=== PATIENT | female | born 1965 | race Caucasian/White ===

== ENCOUNTER → 2016-11-09 | Day surgery (SDC) | payer BC ==
[~2016-11-09] MED LIST: CARAFATE PO; CARAFATE1 GM PO; CIPRO PO; DULOXETINE HCL20 MG PO; HYDROCODON-ACE1 EAC9 PO; HYDROMORPHONE HC2 MG PO; KLONOPIN1 M1; KLONOPIN2 MG PO; PANTOPRAZOLE SO40 MG PO; PHENERGAN25 M1 PO; PROMETHAZINE HC25 MG PO; QUETIAPINE FUMA25 MG PO; RESTORIL7.5 MG PO; VENLAFAXINE HCL75 M2 PO; ZANTAC150 MG PO
--- NOTE | ~2016-11-09 | HP ---
Unit #: [id number] #: [id number] Patient: HALIE SANTANA [id number] [address] [place], [place] [address] [id number] O MR#: [id number] NAME: HALIE SANTANA ROOM: Age: 51 Sex: F Admission Date: 11/09/2016 : 1965 Attending Physician: Kyaw Todd M.D. Referring Physician: Kyaw Todd M.D. Primary Care Physician: Miah Uriarte M.D. HISTORY AND PHYSICAL PREOPERATIVE HISTORY AND PHYSICAL PRIMARY CARE PHYSICIAN Dr. Uriarte HISTORY OF PRESENT ILLNESS Ms. Santana is a 51-year-old female, who presented to the hospital last February with syncope and melena and was found to have 2 large gastric ulcers. Biopsies at that time were benign and she was started on appropriate treatment. She is in for followup to re-evaluate her hernia. She still had some epigastric discomfort and nausea. Denies any melena or hematemesis. PAST MEDICAL HISTORY Interstitial cystitis, history of placement of bladder pacemaker. She has had a strangulated hernia repair, peptic ulcer disease, hysterectomy, tonsillectomy, nasal septal repair, oral surgery, breast biopsy, uterine ablation, D and C, small-bowel obstruction. ALLERGIES She is allergic to hydrocodone. CURRENT MEDICATIONS Include Klonopin, Restoril, Zantac, and Carafate. FAMILY HISTORY Unremarkable except for atherosclerotic coronary artery disease. SOCIAL HISTORY Nonsmoker. Nondrinker. Works outside the home. Denies use recreational drugs. PHYSICAL EXAMINATION VITAL SIGNS: Temperature is 98.1, pulse 71 and regular, respirations 12, blood pressure 100/67. GENERAL: She is awake, alert, and oriented. HEENT: Unremarkable. CARDIAC: Regular rhythm. LUNGS: Clear. ABDOMEN: Soft. EXTREMITIES: No edema. NEUROLOGIC: Grossly intact. No skin rashes or lesions. Unit #: [id number] #: [id number] Patient: HALIE SANTANA ASSESSMENT AND PLAN A 51-year-old female with history of peptic ulcer disease that was symptomatic. She still having some epigastric discomfort. We plan on repeating her endoscopic evaluation to assess the healing of the ulcers. We discussed the procedure including risks, benefits, and complications, and she agrees to proceed. Dictated by Ramos Ruiz/jayro TD: 11/10/2016 02:07 JOB #: [id number] HISTORY AND PHYSICAL Page 1 of 1 X Kyaw Todd MD X HISTORY AND PHYSICAL
--- NOTE | ~2016-11-09 | OR ---
Unit #: [id number] #: [id number] Patient: HALIE SANTANA [id number] [facility] [address] [facility]. [place], [place] [address] [id number] O MR#: [id number] NAME: HALIE SANTANA ROOM: Date of Procedure: 11/09/2016 Admission Date: 11/09/2016 Surgeon: Kyaw Todd M.D. : 1965 Attending Physician: Kyaw Todd M.D. Referring Physician: Kyaw Todd M.D. Primary Care Physician: Miah Uriarte M.D. OPERATIVE REPORT PREOPERATIVE DIAGNOSIS History of peptic ulcer disease. POSTOPERATIVE DIAGNOSIS Prepyloric gastric ulcer. PROCEDURES PERFORMED Esophagogastroduodenoscopy to third portion of duodenum with biopsy of the ulcer edge x2 and RILEY testing. ANESTHESIA Monitored anesthesia. INDICATIONS FOR PROCEDURE A 51-year-old female, who has had symptomatic ulcer disease in the past and was scheduled for followup. She still complained of some epigastric discomfort, but no hematemesis or melena. DESCRIPTION OF PROCEDURE The patient was admitted to [facility], positively identified, transported to the endoscopy suite. After appropriate monitoring and positioning, a bite block was placed and she was sedated by the nurse used car make ready mechanic. The endoscope was passed through the oral cavity in the esophagus. Under direct vision, we passed through the esophagus into the stomach. The stomach was insufflated and just before the pylorus, the patient still has a cratered ulcer bed, but no visible vessel and no evidence of any bleeding. I was able to pass through the pylorus down to the third portion of the duodenum. Duodenum and duodenal bulb were normal. As I came back in a retrograde fashion, biopsy from the ulcer edge were done x2 and then a biopsy for RILEY testing was taken. One of the biopsy sites had some bleeding, so it was hemoclipped. The upper fundus and cardia showed no abnormalities. As I came back to the GE junction, it was well demarcated at 40 cm. There was no hiatal hernia, no esophagitis, no Shearer mucosa. The rest of the esophagus appeared normal and the larynx appeared normal. The patient tolerated the procedure well and transported to recovery in stable condition. We will await the biopsy and CLOtest results, but in the interim, continue the patient's acid blockade and Carafate. Dictated by... Kyaw Todd M.D. Unit #: [id number] #: [id number] Patient: HALIE SANTANA GILBERT/jayro TD: 11/10/2016 02:21 JOB #: [id number] OPERATIVE REPORT Page 1 of 1 X Kyaw Todd MD X PROCEDURE OPERATIVE NOTE
== END | disposition home or self-care (01) ==
LOC: COPS 10:22
DX: K29.50 Unspecified chronic gastritis without bleeding (principal); K25.9 Gastric ulcer, unspecified as acute or chronic, without hemorrhage or perforation; Z87.11 Personal history of peptic ulcer disease; Z90.710 Acquired absence of both cervix and uterus; Z90.89 Acquired absence of other organs; Z88.5 Allergy status to narcotic agent; Z79.899 Other long term (current) drug therapy
CPT/HCPCS: 87077; 88305; 88312; C9113; J2250

== ENCOUNTER → 2017-01-26 | Outpatient (CLI) | payer BC | END | disposition home or self-care (01) | LOC: CLAB 10:03 | DX: R10.13 Epigastric pain (principal) | CPT/HCPCS: 36415; 82941 ==

== ENCOUNTER → 2017-04-03 | Outpatient (CLI) | payer BC ==
--- NOTE | ~2017-04-03 | CT2 ---
[facility] A Service of [facility] / [facility] RADIOLOGY TEXT RESULTS PATIENT: HALIE SANTANA LOCATION: [facility] : [birth year] UNIT #: [id number] AGE: [address]: Miah Uriarte MD SEX: F ORDER DR: [id number] [facility] [address] [facility]. [place], [place] [address] [id number] O MR#: [id number] Acc #: [id number] NAME: HALIE SANTANA : 1965 SEX: F STUDY DATE/TIME: 04/03/2017 10:06 UNIT: [facility] ROOM: STUDY DESCRIPTION: CT Abd and Pelv W Cont Attending Physician: Miah Uriarte M.D. Referring Physician: Miah Uriarte M.D. Ordering Physician: Miah Uriarte M.D. Primary Care Physician: Miah Uriarte M.D. MEDICAL IMAGING REPORT This report is preliminary unless electronic signature is present EXAM CT abdomen and pelvis with IV contrast COMPARISON September 13, 2015 and June 11, 2015. INDICATION 52-year-old female with left upper quadrant and epigastric abdominal pain as well as nausea for 2 months. History of unspecified ulcers as well. Prior pancreatitis. FINDINGS Axial CT imaging of the abdomen and pelvis was performed after IV administration of 100 mL of Isovue 370. Coronal and sagittal reformats were constructed. This CT examination was performed with one or more of the following radiation dose reduction techniques: automatic exposure control, adjustment of mA and/or kV according to patient size, and iterative reconstruction. No acute fractures or suspicious osseous lesions. Sacral nerve stimulator is again noted, with the lead in stable position in the right posterior pelvis. No evidence of complication. No evidence of acute fracture or suspicious osseous lesion. No acute findings in the imaged lower chest. The liver, gallbladder and in particular the pancreas are unremarkable. There is normal biliary caliber. There is a splenule at the splenic hilum. Spleen is otherwise unremarkable. Adrenal glands and kidneys are within normal limits. No hydronephrosis or hydroureter. No renal or ureteral calculi. Urinary bladder is unremarkable. The patient is post hysterectomy. Sigmoid diverticulosis without evidence of acute diverticulitis. There are scattered diverticula of the left colon as well. No evidence of acute appendicitis. No free fluid or pneumoperitoneum. No bowel obstruction. No adenopathy. Calcified and noncalcified plaque are seen in the infrarenal abdominal aorta extending into the iliac arteries and femoral arteries bilaterally. No evidence of significant stenosis. Main branches [facility] A Service of [facility] RADIOLOGY TEXT RESULTS PATIENT: HALIE SANTANA LOCATION: [facility] : 69 UNIT #: [id number] AGE: [address]: Miah Uriarte MD SEX: F ORDER DR: of the abdominal aorta are widely patent. No evidence of venous thrombosis. IMPRESSION 1. No acute findings within the abdomen, pelvis or imaged lower chest. In particular, the pancreas is normal. 2. Patient is post hysterectomy. There is colonic diverticulosis without evidence of acute diverticulitis. 3. Calcified and noncalcified plaque involving the infrarenal abdominal aorta, iliac arteries and femoral arteries bilaterally. 4. Sacral nerve stimulator appears adequately positioned and stable. No evidence of complication. Dictated by... Karl Lubin M.D. THIS IS AN ELECTRONICALLY VERIFIED REPORT Karl Lubin M.D. at 04/10/2017 2:12 PM NEETU/kandi TD: 04/04/2017 13:41 JOB #: [id number] MEDICAL IMAGING REPORT Page 1 of 1 COPY
== END | disposition home or self-care (01) ==
LOC: CCAT 08:49
DX: K85.90 Acute pancreatitis without necrosis or infection, unspecified (principal); K57.30 Diverticulosis of large intestine without perforation or abscess without bleeding; I70.0 Atherosclerosis of aorta; Z90.710 Acquired absence of both cervix and uterus
CPT/HCPCS: 74177; Q9967